=== PATIENT | female | born 1945 | race American Indian/Alaskan Native ===

== ENCOUNTER 2019-07-25 09:07 | Day surgery (SDC) | payer MEDICARE, OTHER ==
[~2019-07-25] VITALS: Ht 144.8 cm; Wt 72.6 kg
[2019-07-25] VITALS (11 sets, daily range): BP systolic 133–171; BP diastolic 58–93
[2019-07-25] MEDS ORDERED: famotidine 20mg tablet PO ONE (10:05)
[2019-07-25] MEDS ORDERED: predniSONE 20 mg tablet PO ONE (10:05)
[2019-07-25] MEDS ORDERED: LORazepam 0.5 MG tablet PO PRN (10:05)
[2019-07-25] MEDS ORDERED: diphenhydrAMINE 25mg capsule PO PRN (10:05)
[2019-07-25] MEDS ORDERED: hydrocortisone sod succ/PF 100mg/2ml inj. IV ONE (10:10)
[2019-07-25] MEDS ORDERED: ROSU5TAB PO (10:11)
[2019-07-25] MEDS ORDERED: HYDR-4353 PO (10:11)
[2019-07-25] MEDS ORDERED: CLOP75TA35 PO (10:11)
[2019-07-25] MEDS ORDERED: AMLO10TA PO (10:11)
[2019-07-25] MEDS ORDERED: METO-395 PO (10:11)
[2019-07-25] MEDS ORDERED: PANT-47 PO (10:11)
[2019-07-25] MEDS ORDERED: ROSU10TA2 PO (10:11)
[2019-07-25] MEDS ORDERED: LISI-600 PO (10:11)
[2019-07-25] MEDS ORDERED: ISOS30TA9 PO (10:11)
[2019-07-25] MEDS ORDERED: LIDOcaine 1% (10mg/ml)w/preservative injection 20ml MDV ONE (10:50)
[2019-07-25] MEDS ORDERED: nitroGLYCERIN-Tridil 50MG/D5W 250 ML IV ONE (10:50)
[2019-07-25] MEDS ORDERED: fentaNYL/PF 50MCG/1 ML 2ML syringe ONE ×2 (10:50→12:17)
[2019-07-25] MEDS ORDERED: LIDOcaine/PRILOcaine 5gm cream TP ONE (10:50)
[2019-07-25] MEDS ORDERED: midazolam 2 mg/2 ml injection ONE ×2 (10:50→11:58)
[2019-07-25] MEDS ORDERED: iohexol 350 MG/ML 50ML vial IV ONE ×2 (10:51→12:19)
[2019-07-25] MEDS ORDERED: iohexol 350MG/ML 100ml bottle IV ONE (10:51)
[2019-07-25] MEDS ORDERED: verapamil 2.5 mg/ml inj IV ONE (11:19)
[2019-07-25] MEDS ORDERED: heparin 1,000unit/ml 10ml vial 10 ML ONE (11:31)
[2019-07-25] MEDS ORDERED: HYDROmorphone 1 mg/ml syringe ONE (12:22)
[2019-07-25] MEDS ORDERED: normal saline 1000ml 1,000 ML IV ONE (16:30)
[2019-07-25] MEDS ORDERED: ACETYLCYSTEINE 200 MG/1 ML 4 ML ORAL SOLUTION PO SCH (16:45)
[2019-07-26 11:56] LABS: ISTAT HGB ART 11.6 g/dl (12.0-16.0); ISTAT Hct ART 34 %PCV (35-48); ISTAT O2 SATURATION ARTERIAL 93 % (95-98); ISTAT SOURCE ART
== END 2019-07-25 19:00 | disposition home or self-care (01) ==
LOC: SSTAY O 09:07
PROVIDERS: ATTEND Internal Medicine Cardiovascular Disease
DX: R94.39 Abnormal result of other cardiovascular function study (principal); I25.10 Atherosclerotic heart disease of native coronary artery without angina pectoris; I10 Essential (primary) hypertension; E78.49 Other hyperlipidemia; J44.9 Chronic obstructive pulmonary disease, unspecified; K21.9 Gastro-esophageal reflux disease without esophagitis; I25.2 Old myocardial infarction; G47.30 Sleep apnea, unspecified; F17.210 Nicotine dependence, cigarettes, uncomplicated; Z95.5 Presence of coronary angioplasty implant and graft; Z79.899 Other long term (current) drug therapy; Z79.01 Long term (current) use of anticoagulants; Z88.0 Allergy status to penicillin; Z88.8 Allergy status to other drugs, medicaments and biological substances; Z88.5 Allergy status to narcotic agent; Z91.018 Allergy to other foods; Z82.49 Family history of ischemic heart disease and other diseases of the circulatory system; Z82.3 Family history of stroke
CPT/HCPCS: 82803; 85014; 93005; 93460; 99152; 99153; C1769; C1894; J1170; J1644; J1720; J2001; J2250; J3010; Q0163; Q9967; A4620; A5120; A6258; J3490

== ENCOUNTER 2020-04-16 09:48 | Observation (INO) | payer MEDICARE, OTHER ==
[2020-04-15 09:29] LABS: BASOPHILS % (AUTO) 0.2 % (0-1); EOSINOPHILS % (AUTO) 0 % (0-6); HEMATOCRIT 28.2 % (35.0-45.0); HEMOGLOBIN 9.2 g/dl (12.0-16.0); LYMPHOCYTES # (AUTO) 0.6 X10'3 (1.1-4.8); LYMPHOCYTES % (AUTO) 15.6 % (21-51); MEAN CORPUSCULAR HEMOGLOBIN 24.1 PG (27.0-31.0); MEAN CORPUSCULAR HGB CONC 32.6 g/dL (33.0-36.5); MONOCYTES # (AUTO) 0.1 X10'3 (0-0.9); MONOCYTES % (AUTO) 1.5 % (2-12); NEUTROPHILS # (AUTO) 3.4 X10'3 (1.8-7.7); NEUTROPHILS % (AUTO) 82.7 % (42-75); PLATELET COUNT 348 X10'3 (140-440); RED BLOOD COUNT 3.81 X10'6 (4.20-5.60); RED CELL DISTRIBUTION WIDTH 21.3 % (11.5-14.5); WHITE BLOOD COUNT 4.1 X10'3 (4.5-11.0)
[2020-04-15 09:33] LABS: ALBUMIN 3.7 G/DL (3.4-5.0); ANION GAP 15 (8-16); BLOOD UREA NITROGEN 22 MG/DL (7-18); BUN/CREATININE RATIO 13.6 (6.6-38.0); CALCIUM 9.6 MG/DL (8.5-10.1); CHLORIDE 106 MMOL/L (99-107); CREATININE 1.62 MG/DL (0.40-0.90); GLUCOSE 141 MG/DL (70-104); POTASSIUM 4.4 MMOL/L (3.5-5.1); SODIUM 141 MMOL/L (135-145); TOTAL CARBON DIOXIDE 20.1 MMOL/L (24-32); eGFR 31 ML/MIN
[2020-04-15 09:36] LABS: PARTIAL THROMBOPLASTIN TIME 26 SECONDS (22-32)
[2020-04-15 13:51] LABS: ANISOCYTOSIS 3+; ELLIPTOCYTES 1+; HYPOCHROMASIA 1+; MICROCYTOSIS 1+; PLATELET ESTIMATE NORMAL; POLYCHROMASIA FEW
[2020-04-15 13:52] LABS: ROULEAUX 1+; SCHISTOCYTES FEW
[~2020-04-16] VITALS: Ht 144.8 cm; Wt 62.2 kg
[2020-04-16] VITALS (13 sets, daily range): BP systolic 93–160; BP diastolic 59–102
[~2020-04-16 09:48] MED LIST: AMLO10TA PO; CLOP75TA34 PO; HYDR-4353 PO; ISOS30TA9 PO; LISI20TA28 PO; METO-395 PO; PANT-47 PO; ROSU10TA2 PO
[2020-04-16] MEDS ORDERED: diphenhydrAMINE 25mg capsule PO PRN (10:10)
[2020-04-16] MEDS ORDERED: sodium bicarbonate (8.4%) inj. 150 ML in dextrose 5%-water 1,000 ML IV ONE (10:10)
[2020-04-16] MEDS ORDERED: LIDOcaine/PRILOcaine 5gm cream TP ONE (10:10)
[2020-04-16] MEDS ORDERED: acetylcysteine 200 MG/ml 4ml vial PO PRN (10:10)
[2020-04-16] MEDS ORDERED: LORazepam 0.5 MG tablet PO PRN (10:10)
[2020-04-16] MEDS ORDERED: MECL-159 PO (10:23)
[2020-04-16] MEDS ORDERED: POTA20TA19 PO (10:23)
[2020-04-16] MEDS ORDERED: NIFE90TA61 PO (10:23)
[2020-04-16] MEDS ORDERED: METO-384 PO (10:23)
[2020-04-16] MEDS ORDERED: FURO80TA3 PO (10:23)
[2020-04-16] MEDS ORDERED: predniSONE 20 mg tablet PO ONE (10:25)
[2020-04-16] MEDS ORDERED: famotidine 20mg tablet PO ONE (10:30)
[2020-04-16] MEDS ORDERED: METO25TA6 PO (10:36)
[2020-04-16] MEDS ORDERED: fentaNYL/PF 50MCG/1 ML 2ML syringe ONE (11:27)
[2020-04-16] MEDS ORDERED: iohexol 350 MG/ML 50ML vial IV ONE (11:27)
[2020-04-16] MEDS ORDERED: midazolam 2 mg/2 ml injection ONE (11:27)
[2020-04-16] MEDS ORDERED: nitroGLYCERIN-Tridil 50MG/D5W 250 ML IV ONE (11:27)
[2020-04-16] MEDS ORDERED: LIDOcaine 1% (10mg/ml)w/preservative injection 20ml MDV ONE (11:27)
[2020-04-16] MEDS ORDERED: iohexol 350MG/ML 100ml bottle IV ONE (11:27)
[2020-04-16] MEDS ORDERED: heparin 1,000unit/ml 10ml vial 10 ML ONE (11:27)
[2020-04-16] MEDS ORDERED: verapamil 2.5 mg/ml inj IV ONE (11:27)
[2020-04-16 12:22] LABS: ISTAT HGB ART 8.8 g/dl (12.0-16.0); ISTAT Hct ART 26 %PCV (35-48); ISTAT O2 SATURATION ARTERIAL 94 % (95-98); ISTAT SOURCE ART
[2020-04-16] MEDS ORDERED: heparin 25,000 UNIT/250ml bag 250 ML IV ONE (12:42)
[2020-04-16] MEDS ORDERED: iohexol 350 MG/1 ML 200ml bottle ONE (12:42)
[2020-04-16] MEDS ORDERED: heparin 1,000 UNITS/NS 500ml 500 ML ONE (13:09)
[2020-04-16] MEDS ORDERED: clopidogrel 300mg tablet ONE (13:28)
[2020-04-16] MEDS ORDERED: hydrALAZINE 20mg/ml inj. IV ONE (13:40)
--- NOTE | 2020-04-16 14:37 | NUR ---
Patient had come back from laboratory asst, had some pretty bad swelling noted around vasc band and patient couldn't feel her hand and was turning purple, so laboratory asst rn and I released a 2 cc of air, site started bleeding, so we reinflated back up 2 cc's, noted more swelling, so held pressure for 10 minutes. Hematoma resolved, soft around vasc band. Stopped heparin drip at 1430 per md orders, vitals stable, sinus rhythm.
[2020-04-16] MEDS ORDERED: HYDROcodone/acetaminophen 5mg/325mg tablet PO PRN (14:45)
[2020-04-16] MEDS ORDERED: HYDROcodone/acetaminophen 10/325mg tab PO PRN (14:45)
[2020-04-16] MEDS ORDERED: furosemide 20 MG/2 ML vial IV ONE (14:45)
[2020-04-16] MEDS ORDERED: hydrALAZINE 20mg/ml inj. IV PRN ×2 (14:50→21:40)
[2020-04-16] MEDS ORDERED: OXAZEpam 15mg capsule PO PRN (14:50)
[2020-04-16] MEDS ORDERED: acetaminophen 325mg tablet PO PRN (14:50)
[2020-04-16] MEDS ORDERED: cyclobenzaprine 10mg tablet PO PRN (14:50)
[2020-04-16] MEDS ORDERED: magnesium hydroxide 30ml (MOM) UD suspension PO PRN (14:50)
--- NOTE | 2020-04-16 19:45 | NUR ---
Called Dr. romero as patient was supposed to be discharged at 1930 but due to her bleeding from the artery a few minutes after removing the vasc band, Dr romero was notified and stated to keep her on pcu overnight and to keep vasc band on as I had it at 14cc of air, night nurse to decrease by 1cc every 30 minutes, RN was told all instructions, medications were altered to metoprolol tartrate 50mg bid, added losartan 25mg tomorrow once at noon, ekg in am, bmp in am, heart healthy diet, full code, and tele monitor per md orders. All telephone orders verified. New meds and medication rec was faxed to pharmacy. [facility] in [place] was called in new prescriptions earlier today. Son Isra was notified patient would be staying [place] tomorrow.
[2020-04-16] MEDS: docusate sod 100mg capsule PO SCH (20:00)
--- NOTE | 2020-04-16 20:51 | NUR ---
Problems reprioritized. Patient report given, questions answered & plan of care reviewed with Jerry SANDERS. Will transfer patient up soon to [id number].
[2020-04-16] MEDS ORDERED: meclizine 12.5mg tablet PO PRN (21:00)
--- NOTE | 2020-04-16 21:35 | NUR ---
Transferred patient to [facility] on PCU in stable condition. Gave nurse Jerry an update, 14 cc left in vascband, no hematoma at site, bruising, soft, nontender, pulse ox pleth good, states normal sensation, right ac bandage still in place from director of labor and delivery. Patient wheeled up, transferred to bed, bedside questions with Jerry RN answered. Chart given to set up and charger Abhijeet. All belongings sent up with patient, new meds prescription sheet given to patient and faxed pharmacy [facility] in [place], new medications were plavix, crestor, and baby aspirin. EKG, labs, and medications changed per md telephone orders verified.
[2020-04-16] MEDS: metoprolol tartrate 50mg tablet PO SCH (22:07)
[2020-04-17 02:00] VITALS: BP 148/59
[2020-04-17] MEDS ORDERED: HYDROcodone/acetaminophen 10/325mg tab PO SCH (02:00)
[2020-04-17 06:00] VITALS: BP 146/74
--- NOTE | 2020-04-17 06:21 | NUR ---
Problems reprioritized. Patient report given, questions answered & plan of care reviewed with TOMMY Bains
[2020-04-17] MEDS: metoprolol tartrate 50mg tablet PO SCH (07:29)
[2020-04-17] MEDS: docusate sod 100mg capsule PO SCH (07:29)
[2020-04-17 07:42] LABS: ALBUMIN 3.5 G/DL (3.4-5.0); ANION GAP 11 (8-16); BLOOD UREA NITROGEN 34 MG/DL (7-18); BUN/CREATININE RATIO 20.4 (6.6-38.0); CALCIUM 8.9 MG/DL (8.5-10.1); CHLORIDE 103 MMOL/L (99-107); CREATININE 1.67 MG/DL (0.40-0.90); GLUCOSE 118 MG/DL (70-104); SODIUM 139 MMOL/L (135-145); TOTAL CARBON DIOXIDE 24.9 MMOL/L (24-32); eGFR 30 ML/MIN
[2020-04-17] MEDS ORDERED: ferrous sulfate 325mg tablet PO SCH (08:00)
[2020-04-17] MEDS ORDERED: potassium Cl 20 mEq SR tablet PO SCH (08:00)
[2020-04-17] MEDS ORDERED: metoprolol tartrate 50mg tablet PO SCH ×2 (08:00)
[2020-04-17] MEDS ORDERED: furosemide 40mg tablet PO SCH (08:00)
[2020-04-17] MEDS ORDERED: pantoprazole 40mg Tablet.DR PO SCH (08:00)
[2020-04-17] MEDS ORDERED: clopidogrel 75mg tablet PO SCH ×2 (08:00)
[2020-04-17] MEDS ORDERED: NIFEdipine XL 30mg tablet PO SCH (08:00)
--- NOTE | 2020-04-17 08:01 | NUR ---
Dr. Ortega called to order Ferrous sulfate 325 BID upon patient's discharge. He also would like the son to be educated upon the patient's discharge about tapering diuretics with primary care provider depending on patient's kidney function, as well as having CBC taken once per month to trend H&H.
[2020-04-17] MEDS ORDERED: aspirin 81mg tab.chew PO SCH (08:30)
[2020-04-17 08:43] LABS: BASOPHILS # (AUTO) 0.1 X10'3 (0-0.2); BASOPHILS % (AUTO) 0.6 % (0-1); EOSINOPHILS % (AUTO) 0 % (0-6); HEMATOCRIT 27.9 % (35.0-45.0); HEMOGLOBIN 9.2 g/dl (12.0-16.0); LYMPHOCYTES # (AUTO) 1.2 X10'3 (1.1-4.8); LYMPHOCYTES % (AUTO) 13.6 % (21-51); MEAN CORPUSCULAR HEMOGLOBIN 24.2 PG (27.0-31.0); MEAN CORPUSCULAR VOLUME 73.4 FL (78-98); MONOCYTES # (AUTO) 0.5 X10'3 (0-0.9); MONOCYTES % (AUTO) 5.5 % (2-12); NEUTROPHILS # (AUTO) 7.2 X10'3 (1.8-7.7); NEUTROPHILS % (AUTO) 80.3 % (42-75); PLATELET COUNT 324 X10'3 (140-440); RED CELL DISTRIBUTION WIDTH 21.6 % (11.5-14.5)
[2020-04-17 09:29] LABS: ANISOCYTOSIS 3+; ELLIPTOCYTES 1+; MICROCYTOSIS 1+; PLATELET ESTIMATE NORMAL; SCHISTOCYTES FEW
[2020-04-17 09:30] LABS: HYPOCHROMASIA 1+; POLYCHROMASIA FEW
[2020-04-17 11:00] VITALS: BP 122/47
[2020-04-17] MEDS ORDERED: losartan 25mg tablet PO ONE (12:00)
[2020-04-17] MEDS ORDERED: FER325T PO (12:17)
--- NOTE | 2020-04-17 13:30 | NUR ---
Patient stable for discharge per md orders. Perscriptions e-scripted to [facility] in [place] on [address]. Rita Victoria assessed patient prior to discharge. IV taken out with cannula intact. Patient wheeled to lobby by RN. Education, prescriptions, follow up, and strict return precautions gone over in detail with patient and patient's son. school bus monitor discontinued. Armbands cut at time of discharge.
[2020-04-17] MEDS ORDERED: LOSA25TA96 PO (13:42)
[2020-04-17] MEDS ORDERED: ROSU20TA2 PO (13:42)
== END 2020-04-17 13:49 | disposition home or self-care (01) ==
LOC: SSTAY O 09:48 → PCU 3S 20:53
PROVIDERS: ADMIT Internal Medicine Cardiovascular Disease; ATTEND Internal Medicine Cardiovascular Disease
DX: I25.10 Atherosclerotic heart disease of native coronary artery without angina pectoris (principal); I11.0 Hypertensive heart disease with heart failure; I50.22 Chronic systolic (congestive) heart failure; E78.5 Hyperlipidemia, unspecified; J44.9 Chronic obstructive pulmonary disease, unspecified; I25.2 Old myocardial infarction; G47.33 Obstructive sleep apnea (adult) (pediatric); Z87.19 Personal history of other diseases of the digestive system; Z87.891 Personal history of nicotine dependence; Z95.5 Presence of coronary angioplasty implant and graft; Z79.899 Other long term (current) drug therapy; Z88.0 Allergy status to penicillin; Z88.5 Allergy status to narcotic agent; Z91.041 Radiographic dye allergy status
CPT/HCPCS: 36415; 80048; 82803; 85008; 85014; 85025; 85347; 85610; 85730; 87081; 93005; 93460; 96365; 96366; 96375; C1725; C1751; C1769; C1874; C1894; C9600; G0378; J0360; J1644; J1940; J2001; J2250; J3010; J7512; Q0163; Q9967; 99152; 99153; A4620; A5120; J3490